=== PATIENT | male | born 1950 | race Caucasian/White ===

== ENCOUNTER → 2017-06-23 | Outpatient (CLI) | payer MEDICARE, OTHER ==
[~2017-06-23] VITALS: Ht 172.7 cm; Wt 84.8 kg
[~2017-06-23] MED LIST: IMDUR 30 MG TAB30 M1 PO; LIPITOR 20 MG T20 M1 PO; LISINOPRIL5 MG PO; NITROGLYCERIN0.4 MG SUBLING; OMEPRAZOLE 20 M20 M1 PO; PLAVIX 75 MG TA75 M1 PO; TOPROL XL25 MG PO
[2017-06-23 10:48] VITALS: BP 139/64
[2017-06-23 10:52] LABS: HEMATOCRIT 43.2 % (42.0-52.0); HEMOGLOBIN 14.7 gm/dL (14.0-18.0); MCH 30.6 pg (26.0-34.0); MCV 90.1 fL (80.0-100.0); MPV 7.3 fl. (7.2-11.1); RBC 4.8 mil/uL (4.50-6.00); RDW-CV 13.3 % (10.5-14.5); WBC 5.2 thou/uL (4.0-11.0)
--- NOTE | 2017-06-23 10:59 | EKG ---
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 06/23/17 1059 1055 1055 Rayray Moncada MD, FACC /EPI
[2017-06-23 11:02] LABS: CALCIUM 8.9 mg/dL (8.5-10.1); CREATININE 0.9 mg/dL (0.6-1.3); POTASSIUM 4.5 mmol/L (3.5-5.1)
[2017-06-23 11:04] LABS: APTT 29.9 Seconds (25.0-31.3); PROTIME 9.6 Seconds (9.20-11.50)
[2017-06-23 11:07] LABS: ALBUMIN 4.3 g/dL (3.4-5.0); TOTAL BILIRUBIN 0.6 mg/dL (<0.1-1.0); TOTAL PROTEIN 7.6 g/dL (6.4-8.2)
[2017-06-23 16:02] VITALS: BP 163/75
[2017-06-23 16:05] VITALS: BP 161/76
[2017-06-23 16:22] VITALS: BP 140/76
[2017-06-23 16:57] VITALS: BP 139/73
[2017-06-23 17:21] VITALS: BP 136/69
--- NOTE | 2017-06-23 20:22 | CARD ---
[address] [address] CARDIAC CATH REPORT Name: SATINDER PETERS [id number] Admission: 06/23/17 Attend Phys: Yang Wolf MD Discharge: Date of : 54 Report #: [id number] THIS REPORT FOR: //name// ADDENDUM APPROVED REPORT Study performed: 06/23/2017 14:13:34 Patient Details Patient Status: Out-Patient Room #: The patient is a 67 year-old male Event Personnel Yang Wolf Physiatrist, Rayray Moncada Histopath Tech, Zamzam Villalobos RN RN, Nathaly Florez RTR Monitor, Bc Dawkins Scrub Procedures Performed Art Access - R femoral artery* Left Heart Cath w/LT VGram [id number] LHCLV Hemostasis w/ Angioseal Indication Abnormal ECG, Atypical chest pain , Positive stress test Admission/Lab Medications/Medications given during procedure Heparin Unfract., Heparin IV 5000 units Procedure Narrative The patient was brought electively to the Cardiac Catheterization Laboratory and was prepped and draped in a sterile manner. The right femoral was infiltrated with 1% Lidocaine subcutaneous anesthesia. A 6fr Ultimum Sheath sheath was inserted into the right femoral artery. Coronary angiography was performed using coronary diagnostic catheters. The right coronary system was accessed and visualized with a 6fr JR4 catheter. The left coronary system was accessed and visualized with a 6fr JL4 catheter. The left ventricle was accessed and visualized with a 6fr Pigtail catheter. Left ventricular/Aortic Valve gradient assessed via catheter pullback. Left ventriculogram was performed in QUEEN projection. Closure device was deployed with a 6 Fr Angioseal. The patient tolerated the procedure well and there were no complications associated with the procedure. There was no hematoma. Intraoperative Conscious Sedation Sedation start time: 1436 Case end Time: [place] [address] CARDIAC CATH REPORT Name: SATINDER PETERS Room: [facility]#: [id number] Admission: 06/23/17 Attend Phys: Yang Wolf MD Discharge: Date of : 54 Report #: [id number] Fentanyl 25 mcg Versed 2 mg Fluoro Time: 10.8 minutes Dose: DAP 1796 cGycm2 1796 mGy Contrast Type and Amount: Omnipaque 220 ml Coronary Angiography The patient's coronary anatomy is right dominant. Diagnostic Cath Left Main normal LAD occluded proximal, late filling w/ IC collaterals Diagonal 1 moderate mid body 50% Diagonal 2 small normal Diagonal 3 small Circumflex proximal 50%,small distally OM1 large mid 40-50% OM2 large 30-50% mid distally Right Coronary small to medium, normal R PDA small normal RPLV normal, small Left Ventriculography The left ventricle is mildly dilated in size with reduced contractility. The left ventricular ejection fraction is estimated to be 45%. Left ventricular wall motion abnormalities are present. There is 1+ mitral insufficiency. apical hypokinesis, severe Hemodynamics The aortic pressure is 141/71 mmHg with a mean of 98 mmHg. The left ventricular pressure is 149/13 mmHg with a mean of mmHg. The left ventricular end diastolic pressure is 21 mmHg. PCI Technique Lesion Anticoagulation was achieved with Heparin. Percutaneous coronary intervention was performed on the proximal left anterior descending artery segment. The lesion stenosis prior to intervention was 100% with BASSAM 0 flow. A xblad 3.5 Guide Catheter was used to engage the lm ostium. BALLOON DILATION Attempts were made to cross the total occlusion with a whisper wire, then a Choice PT extra support wire, and finally a grand slam wire. However, non of these wires were able [place] [address] CARDIAC CATH REPORT Name: SATINDER PETERS Room: [facility]#: [id number] Admission: 06/23/17 Attend Phys: Yang Wolf MD Discharge: Date of : 54 Report #: [id number] occlusion. Therefore, the procedure was abandoned. Final angiography reveals 100 % stenosis with BASSAM 0 flow. Conclusion 1. chronic occlusion of the proximal lad 2. unsuccessful attempts at crossing the occlusion with 3 separate guide wire Recommendations Cardiac Rehabilitation Referral Aggressive Medical Therapy Diagnostic Cath Approved by: Yang Wolf MD Date/Time: <ELECTRONICALLY SIGNED> By: Rayray Moncada MD, FACC 06/23/172020 20 isrrael Moncada MD, FACC /INF
== END | disposition home or self-care (01) ==
LOC: M.CL 09:30
PROVIDERS: Internal Medicine Cardiovascular Disease
DX: I25.82 Chronic total occlusion of coronary artery (principal); K21.9 Gastro-esophageal reflux disease without esophagitis; Z98.890 Other specified postprocedural states; Z87.891 Personal history of nicotine dependence; Z79.899 Other long term (current) drug therapy

== ENCOUNTER → 2018-02-01 | Outpatient (CLI) | payer MEDICARE, OTHER ==
[2018-02-01 09:03] LABS: CHOLESTEROL 120 mg/dL (<200); HDL CHOLESTEROL 49 mg/dL (>40); LDL CHOLESTEROL 52 mg/dL (<100); SGOT 29 U/L (15-37); SGPT 38 U/L (30-65); TC:HDL 2.4 Ratio (Not establshd); TRIGLYCERIDE 98 mg/dL (<150); VLDL 20 mg/dL (<40)
[2018-02-01 09:07] LABS: SERUM ASSESSMENT Clear
== END ==
LOC: M.LAB 08:11
PROVIDERS: Internal Medicine Cardiovascular Disease
DX: I25.10 Atherosclerotic heart disease of native coronary artery without angina pectoris (principal)

== ENCOUNTER 2018-06-12 17:10 | Emergency (ER) | payer MEDICARE, OTHER ==
[~2018-06-12] VITALS: Ht 172.7 cm; Wt 90.7 kg
[2018-06-12] MEDS ORDERED: COZAAR 25 MG TA25 M1 PO (17:34)
[2018-06-12] MEDS ORDERED: ASPIR 8181 MG PO (17:35)
[2018-06-12] MEDS ORDERED: KEFLEX500 M1 PO (18:57)
[2018-06-12] MEDS ORDERED: NORCO 5-325 TA1 EAC1 PO (18:57)
[2018-06-12 19:07] VITALS: BP 139/73
== END 2018-06-12 19:28 | disposition home or self-care (01) ==
LOC: M.ERS 17:10
DX: S61.012A Laceration without foreign body of left thumb without damage to nail, initial encounter (principal); S62.522A Displaced fracture of distal phalanx of left thumb, initial encounter for closed fracture; K21.9 Gastro-esophageal reflux disease without esophagitis; Z95.5 Presence of coronary angioplasty implant and graft; W26.9XXA Contact with unspecified sharp object(s), initial encounter; Y93.89 Activity, other specified; Y92.89 Other specified places as the place of occurrence of the external cause; Y99.8 Other external cause status

== ENCOUNTER → 2019-02-03 | Outpatient (CLI) | payer MEDICARE, OTHER ==
[~2019-02-03] MED LIST changes: +ASPIR 8181 MG PO; +COZAAR 25 MG TA25 M1 PO; +KEFLEX500 M1 PO; +NORCO 5-325 TA1 EAC1 PO
[2019-02-03 09:20] LABS: CHOLESTEROL 123 mg/dL (<200); HDL CHOLESTEROL 46 mg/dL (>40); LDL CHOLESTEROL 58 mg/dL (<100); TC:HDL 2.7 Ratio (Not establshd); TRIGLYCERIDE 99 mg/dL (<150); VLDL 20 mg/dL (<40)
[2019-02-03 09:21] LABS: SERUM ASSESSMENT Clear
== END ==
LOC: M.LAB 08:26
PROVIDERS: Internal Medicine Cardiovascular Disease
DX: E78.2 Mixed hyperlipidemia (principal)

== ENCOUNTER → 2019-05-23 | Outpatient (CLI) | payer MEDICARE, OTHER ==
[2019-05-23 15:21] LABS: ABSOLUTE EOSINOPHILS 0.1 thou/uL (0.0-0.7); ABSOLUTE LYMPHOCYTES 1.5 thou/uL (0.8-5.3); ABSOLUTE MONOCYTES 0.4 thou/uL (0.0-1.2); ABSOLUTE NEUTROPHILS 3.6 thou/uL (1.6-8.1); BASOPHILS 0.6 %; EOSINOPHILS 1.1 %; HEMATOCRIT 39.8 % (42.0-52.0); HEMOGLOBIN 13.7 gm/dL (14.0-18.0); LYMPHOCYTES 27.1 %; MCH 30.6 pg (26.0-34.0); MCHC 34.5 g/dL (28.0-37.0); MCV 88.8 fL (80.0-100.0); MONOCYTES 6.6 %; MPV 7.3 fl. (7.2-11.1); NUCLEATED RBCS 0 /100WBC; PLATELET COUNT* 192 thou/uL (150-400); POLYS 64.6 %; RBC 4.48 mil/uL (4.50-6.00); RDW-CV 13.8 % (10.5-14.5); WBC 5.6 thou/uL (4.0-11.0)
[2019-05-23 15:33] LABS: ALBUMIN 4.3 g/dL (3.4-5.0); CALCIUM 8.6 mg/dL (8.5-10.1); TOTAL BILIRUBIN 0.6 mg/dL (<0.1-1.0); TOTAL PROTEIN 7.4 g/dL (6.4-8.2)
[2019-05-25 05:11] LABS: % FREE PSA 18.2 % (()); FREE PSA 0.31 ng/mL
== END ==
LOC: M.LAB 15:03
PROVIDERS: Internal Medicine
DX: Z12.5 Encounter for screening for malignant neoplasm of prostate (principal); N40.0 Benign prostatic hyperplasia without lower urinary tract symptoms; R35.1 Nocturia; Z79.899 Other long term (current) drug therapy

== ENCOUNTER → 2020-07-25 | Outpatient (CLI) | payer MEDICARE, OTHER ==
[2020-07-25 15:22] LABS: CREATININE 0.8 mg/dL (0.6-1.3)
== END ==
LOC: M.LAB 14:55 → M.CT 16:00
PROVIDERS: ATTEND Urology
DX: N28.1 Cyst of kidney, acquired (principal); I70.0 Atherosclerosis of aorta; R19.5 Other fecal abnormalities; N40.1 Benign prostatic hyperplasia with lower urinary tract symptoms

== ENCOUNTER 2020-10-15 01:37 | Emergency (ER) | payer MEDICARE, OTHER ==
[~2020-10-15] VITALS: Ht 172.7 cm; Wt 83.9 kg
[2020-10-15] MEDS ORDERED: LIPITOR 20 MG T20 M1 PO (02:16)
[2020-10-15] MEDS ORDERED: COZAAR 25 MG TA25 M2 PO (02:17)
[2020-10-15] MEDS ORDERED: TOPROL XL25 MG PO (02:17)
[2020-10-15] MEDS ORDERED: OMEPRAZOLE 20 M20 M1 PO (02:18)
[2020-10-15] MEDS ORDERED: NITROSTAT0.4 M1 SUBLING (02:18)
[2020-10-15] MEDS ORDERED: ASPIRIN EC81 M1 PO (02:18)
[2020-10-15] MEDS ORDERED: MIRALAX119 GM PO (02:19)
[2020-10-15] MEDS ORDERED: FLOMAX0.4 MG PO (02:19)
[2020-10-15] MEDS ORDERED: CEPHALEXIN500 MG PO (02:38)
[2020-10-15 03:05] VITALS: BP 162/71
== END 2020-10-15 03:05 | disposition home or self-care (01) ==
LOC: M.ERS 01:37
DX: B00.1 Herpesviral vesicular dermatitis (principal); L03.211 Cellulitis of face; I10 Essential (primary) hypertension; K21.9 Gastro-esophageal reflux disease without esophagitis; Z95.5 Presence of coronary angioplasty implant and graft; Z85.51 Personal history of malignant neoplasm of bladder

== ENCOUNTER → 2020-12-21 | Outpatient (CLI) | payer MEDICARE, OTHER ==
[~2020-12-21] MED LIST changes: +ASPIRIN EC81 M1 PO; +CEPHALEXIN500 MG PO; +COZAAR 25 MG TA25 M2 PO; +FLOMAX0.4 MG PO; +MIRALAX119 GM PO; +NITROSTAT0.4 M1 SUBLING
== END ==
LOC: M.RAD 10:06
PROVIDERS: ATTEND Internal Medicine
DX: M19.022 Primary osteoarthritis, left elbow (principal); M25.722 Osteophyte, left elbow; M25.522 Pain in left elbow; M25.512 Pain in left shoulder

== ENCOUNTER → 2021-01-24 | Outpatient (CLI) | payer MEDICARE, OTHER ==
--- NOTE | 2021-01-25 16:45 | CARDNUC ---
[place] [address] CARDIAC NUCLEAR IMAGING REPORT Name: SHANNANDANNIELLESATINDER STEARNS Room: [facility]#: [id number] Admission: 01/24/21 Attend Phys: Manpreet Garcia, Discharge: Date of : 54 Date of Service: 01/25/21 1644 Report #: [id number] THIS REPORT FOR: cc: Ashlie Rizo MD, Lin W. MD Liston, Michael J. MD [facility] ~ APPROVED REPORT Study performed: 01/24/2021 07:30:00 Indication: CAD Patient Location: Out-Patient Stress Tech: Billie Colby Stress Nurse: Jackie Paez RN MS Tech:DXA Yoo Ht: 5 ft 8 in Wt: 192 lbs BSA: 2.01 m2 HR: 66 bpm BP: 132/77 mmHg BMI: 29.18 Rhythm: NSR Medical History Medical History: CAD s/p stent, CHF,HTN Medications: Imdur,asa, lipitor, cozaar, metoprolol Allergies: No known drug allergies Cardiac Risk Factors: HTN, CAD, chf Previous Cardiac Procedures: PCI Pretest Chest Pain Characteristics: No chest pain Exercise History: Physically active Meds Held (48 hrs): metoprolol, imdur Resting Data Rest SPECT myocardial perfusion imaging was performed in supine position 30 minutes following the intravenous injection of 9.9 mCi of Tc-99m Sestamibi. Time of rest injection: 08:00 The images were gated to evaluate regional wall motion and calculate left ventricular ejection fraction. Administration Route: IV Administration Site: Right AC Pharmacologic Stress Pharmacologic stress test was performed by injecting Regadenoson 0.4 mg IV push over 10-15 seconds immediately followed [place] [address] CARDIAC NUCLEAR IMAGING REPORT Name: SATINDER PETERS Room: [facility]#: [id number] Admission: 01/24/21 Attend Phys: Manpreet Garcia, Discharge: Date of : 54 Date of Service: 01/25/21 1644 Report #: [id number] injection of 34.6 mCi of Tc-99m Sestamibi. Time of stress injection: 09:15 Administration Route: IV Administration Site: Right AC Heart Rate at time of stress injection: 109 bpm. Gated Stress SPECT was performed 45 minutes after stress injection. The images were gated to evaluate regional wall motion and calculate left ventricular ejection fraction. Prone imaging was performed. Stress Test Details Stress Test: Pharmacologic stress testing performed using 0.4 mg of regadenoson per 5 mL given IV over 10 seconds. Reason for pharmacologic stress test: HTN. HR Max Heart Rate (APMHR): 152 bpm Resting HR: 66 bpm Target HR (85% APMHR): 129 bpm Max HR Achieved: 109 bpm % of APMHR: 71 Recovery HR: 73 bpm BP Resting BP: 132/77 mmHg Max BP: 264/69 mmHg Recovery BP: 189/80 mmHg ECG Resting ECG: Sinus Rhythm Stress ECG: Sinus Tachycardia ST Change: None Arrhythmia: None Recovery ECG: Sinus Rhythm Recovery ST Change: None Recovery Arrhythmia: None Clinical Reason for Termination: Completed protocol Stress Symptoms: chest flushing first min of theodore admin The patient tolerated Lexiscan infusion without significant cardiac symptoms. Nurse Comments report completed by Jackie Paez RN Stress ECG Conclusion The baseline twelve-lead EKG shows sinus [place] [address] CARDIAC NUCLEAR IMAGING REPORT Name: SATINDER PETERS Room: [facility]#: [id number] Admission: 01/24/21 Attend Phys: Manpreet Garcia, Discharge: Date of : 54 Date of Service: 01/25/21 1644 Report #: [id number] segment abnormality. EKGs obtained during and post Lexiscan infusion show sinus rhythm and sinus tachycardia with no significant ST segment or T wave changes when compared to baseline. There were no stress-induced arrhythmias. Study Quality Study: Good Study Data At rest, the left ventricular ejection fraction was 61%.. Post stress, the left ventricular ejection was 53%.. TID = 1.10. Perfusion There is a moderate size severe intensity fixed defect involving the anteroapical wall. No other significant fixed or reversible defects are identified. Wall Motion The anteroapical wall is akinetic. The remainder the ventricle appears to move normally. 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 Left ventricular systolic function appears to be preserved to mildly decreased. Wall motion abnormalities are present as outlined above. This is not a high risk study. <Conclusion> The baseline twelve-lead EKG shows sinus rhythm without significant ST segment abnormality. EKGs obtained during and post Lexiscan infusion show sinus rhythm and sinus tachycardia with no significant ST segment or T wave changes when compared to baseline. There were no stress-induced arrhythmias. <ELECTRONICALLY SIGNED> By: Manpreet Garcia MD, FACC 01/25/21 1644 164 164 Manpreet Garcia MD, FACC /INF
== END ==
LOC: M.NUC 01-07 09:31
PROVIDERS: ATTEND Internal Medicine Cardiovascular Disease
DX: I25.10 Atherosclerotic heart disease of native coronary artery without angina pectoris (principal)